=== PATIENT | male | born 1995 | race American Indian/Alaskan Native ===

== ENCOUNTER 2016-09-01 19:09 | Emergency (ER) | payer SELFPAY ==
[2016-09-01] MEDS ORDERED: NACL 0.9% 1000 ML 1,000 ML ONE ×2 (19:10→19:18)
[2016-09-01] MEDS ORDERED: MORPHINE ONE ×2 (19:18)
[2016-09-01] MEDS ORDERED: NACL 0.9% 1000 ML 1,000 ML IV ONE (19:26)
[2016-09-01] MEDS ORDERED: MORPHINE IV ONE (19:27)
[2016-09-01 19:36] LABS: Basophils % (Auto) 0.8 % (0.0-1.8); Eosinophils % (Auto) 0.4 % (0.0-4.3); Hematocrit 48.8 % (35.5-45.6); Hemoglobin 15.7 gm/dl (11.8-15.2); Mean Corpuscular HGB Conc 32 % (32-34); Mean Corpuscular Hemoglobin 27 pg (28-32); Mean Corpuscular Volume 84 fl (84-94); Platelet Count 268 K/mm3 (140-440); Red Blood Count 5.78 M/mm3 (3.65-5.03)
[2016-09-01 19:46] LABS: Anion Gap 27 mmol/L; Blood Urea Nitrogen 8 mg/dL (9-20); Calcium 10.2 mg/dL (8.4-10.2); Carbon Dioxide 20 mmol/L (22-30); Chloride 98.7 mmol/L (98-107); Creatine Kinase 246 units/L (55-170); Glucose 145 mg/dL (75-100); Potassium 4.1 mmol/L (3.6-5.0); Sodium 142 mmol/L (137-145)
[2016-09-01] MEDS ORDERED: DILAUDID ONE (19:55)
[2016-09-01] MEDS ORDERED: DILAUDID IV ONE ×2 (19:58→22:16)
[2016-09-01] MEDS ORDERED: ANCEF/NS 1 GM/50 ML 1 GM/50 ML BAG IV ONE (20:02)
[2016-09-01] MEDS ORDERED: BOOSTRIX IM ONE (20:02)
[2016-09-01 20:08] LABS: INR 1.17 (0.87-1.13)
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
[2016-09-01] MEDS ORDERED: NACL 0.9% IR ONE (20:56)
[2016-09-01] MEDS ORDERED: XYLOCAINE 1% 20 mL INFILTRATI ONE (20:56)
[2016-09-01] MEDS ORDERED: XYLOCAINE 1%/ EPI 1:100,000 INFILTRATI ONE ×2 (20:57→21:05)
[2016-09-01] MEDS ORDERED: NACL 0.9% 500 ML IR ONE (20:57)
[2016-09-01 21:09] LABS: Bilirubin,Urine NEG (Negative); Blood,Urine NEG (Negative); Ketones,Urine NEG (Negative); Leukocyte Esterase,Urine NEG (Negative); Mucus,Urine 3+ /HPF; Nitrite,Urine NEG (Negative); Urobilinogen,Urine < 2.0 mg/dL (<2.0)
[2016-09-01] MEDS ORDERED: TRIPLE ANTIBIOTIC TP ONE ×2 (21:57→22:16)
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
[2016-09-01 22:57] VITALS: BP 130/88
== END 2016-09-01 22:56 | disposition home or self-care (01) ==
LOC: ED 19:09
DX: S91.331A Puncture wound without foreign body, right foot, initial encounter (principal); W34.09XA Accidental discharge from other specified firearms, initial encounter; Y93.89 Activity, other specified; Y92.89 Other specified places as the place of occurrence of the external cause; Y99.8 Other external cause status
CPT/HCPCS: 12001; 36415; 71010; 73590; 73620; 80048; 81001; 82550; 84484; 85025; 85610; 85730; 90471; 90715; 93005; 93010; 96361; 96374; 96375; 96376; 99284; J0690; J1170; J2270; J7030; A6250

== ENCOUNTER 2016-09-14 15:58 | Emergency (ER) | payer SELFPAY ==
[2016-09-14 17:41] VITALS: BP 110/66
--- NOTE | 2016-09-14 18:38 | Emergency Department Report ---
Suture/Staple Removal - HPI Chief Complaint: Laceration/Recheck/Suture Stated Complaint: SUTURE REMOVAL Time Seen by Provider: 09/14/16 18:33 ED Review of Systems ROS: Stated complaint: SUTURE REMOVAL Other details as noted in HPI Comment: All other systems reviewed and negative Constitutional: no symptoms reported Eyes: as per HPI ENT: as per HPI Respiratory: no symptoms reported Cardiovascular: as per HPI Endocrine: no symptoms reported Gastrointestinal: as per HPI Genitourinary: as per HPI Musculoskeletal: as per HPI Skin: as per HPI Neurological: as per HPI Psychiatric: as per HPI Hematological/Lymphatic: as per HPI ED Past Medical Hx - Past Medical History Previous Medical History?: No - Surgical History Past Surgical History?: No - Social History Smoking Status: Current Every Day Smoker Substance Use Type: None - Medications Home Medications: Home Medications Medication Instructions Recorded Confirmed Last Taken Type Cephalexin [Keflex] 500 mg PO Q12HR #14 cap 09/01/16 Unknown Rx HYDROcodone/APAP 5-325 [[place] 1 each PO Q6HR PRN #12 tablet 09/01/16 Unknown Rx 5/325] Naproxen [Naprosyn TAB] 500 mg PO BID PRN #30 tablet 09/01/16 Unknown Rx Neomycn/Baci Zn/Pmyx Bs/Pramox 28 gm TP BID #1 oint...g. 09/01/16 Unknown Rx [Triple Antibioti-Pain Rlf Oint] Suture Removal Exam - Exam General: Vital signs noted. No distress. Alert and acting appropriately. Wound: No Pathologic Erythema, No Tenderness, No Drainage, No Pus Other Systems: All other systems reviewed and are unremarkable. ED Course Vital Signs 09/14/16 17:38 Temperature 97.4 F L Pulse Rate 73 Respiratory 16 Rate Blood Pressure 110/66 O2 Sat by Pulse 100 Oximetry ED Recheck MDM - Differential Diagnosis Suture/Staple Removal - Medical Decision Making no s/s infection focused on pain and his mothers pain meds educated to take otc motrin he never followed up with ortho Critical care attestation.: If time is entered above; I have spent that time in minutes in the direct care of this critically ill patient, excluding procedure time. ED Disposition Clinical Impression: Visit for suture removal Disposition: DISCHARGED TO HOME OR SELFCARE Is pt being admited?: No Does the pt Need Aspirin: No Condition: Good Instructions: Suture Removal (ED) Additional Instructions: keep wound clean and dry follow up ortho as instructed motrin over the counter for pain Referrals: PRIMARY CARE, [Primary Care Provider] - 3-5 Days Time of Disposition: 18:37
== END 2016-09-14 19:01 | disposition home or self-care (01) ==
LOC: ED 15:58
DX: Z48.02 Encounter for removal of sutures (principal)